=== PATIENT | male | born 1950 | race Caucasian/White ===

== ENCOUNTER 2018-03-21 16:29 | Emergency (ER) | payer MEDICARE, OTHER ==
[2018-03-21 16:47] VITALS: BP 118/67
--- NOTE | 2018-03-21 17:07 | EDM.PDOC ---
ED HPI GENERAL MEDICAL PROBLEM - General Chief Complaint: Lower Extremity Injury/Pain Stated Complaint: LEFT ANKLE INJURY Time Seen by Provider: 03/21/18 17:00 Source of Information: Reports: Patient History Limitations: Reports: No Limitations - History of Present Illness INITIAL COMMENTS - FREE TEXT/NARRATIVE: 67-year-old male turned his left ankle when he stepped wrong on his dock at home. This happened 6 hours ago. He now has pain and swelling around the ankle. Also a slight abrasion on the anterior aspect of the left knee, but no bony tenderness. Onset: Sudden Duration: Hour(s): (6 hours ago) Location: Reports: Lower Extremity, Left Severity: Mild - Related Data Allergies Allergy/AdvReac Type Severity Reaction Status Date / Time No Known Allergies Allergy Verified 03/21/18 17:15 Home Meds: Home Meds Cyanocobalamin (Vitamin B-12) [Vitamin B-12] 1,000 mcg PO DAILY 05/29/16 [ History] Gabapentin [Neurontin] 800 mg PO QID 05/29/16 [History] Tamsulosin [Flomax] 0.4 mg PO DAILY 05/29/16 [History] carBAMazepine [carBAMazepine ER] 200 mg PO TID 03/21/18 [History] Past Medical History Gastrointestinal History: Reports: Cholelithiasis Genitourinary History: Reports: Prostate Disorder Musculoskeletal History: Reports: Other (See Below) Other Musculoskeletal History: cervical fractur 2 3 4 Neurological History: Reports: Neuropathy, Peripheral Hematologic History: Reports: B12 Deficiency - Past Surgical History Neurological Surgical History: Reports: C-Spine, Spinal Fusion Social & Family History - Caffeine Use Caffeine Use: Reports: Coffee - Living Situation & Occupation Living situation: Reports: Occupation: Employed Review of Systems - Review of Systems Review Of Systems: See Below Constitutional: Denies: Fever Respiratory: Denies: Shortness of Breath Cardiovascular: Denies: Chest Pain GI/Abdominal: Denies: Abdominal Pain Skin: Reports: Other (Superficial abrasion on the left knee) ED EXAM, GENERAL - Physical Exam Exam: See Below Exam Limited By: No Limitations General Appearance: Alert, No Apparent Distress Respiratory/Chest: No Respiratory Distress Extremities: Other (Exam is otherwise limited to the lower extremities. There is a superficial abrasion on the anterior aspect of the left knee, no knee instability or effusion. The left ankle is swollen and tender over the medial and lateral malleolus but no deformity is present. Some slight bruising has started.) Course - Vital Signs Last Recorded V/S: Last Vital Signs Temp 98.3 F 03/21/18 17:15 Pulse 76 03/21/18 17:15 Resp 16 03/21/18 17:15 BP 118/67 03/21/18 17:15 Pulse Ox 98 03/21/18 17:15 - Orders/Labs/Meds Orders: Active Orders 24 hr Category Date Time Status Ankle Min 3V Lt [CR] Stat Exams 03/21/18 17:37 Taken - Re-Assessments/Exams Free Text/Narrative Re-Assessment/Exam: 03/21/18 18:08 An x-ray of the left ankle was obtained which was negative for fracture. A four- inch Collin wrap was applied to the ankle which was supportive and felt comfortable , the patient will increase activity as tolerated using his cane. Recheck in 5- 7 days if not improving satisfactorily. Departure - Departure Time of Disposition: 18:30 Disposition: Home, Self-Care 01 Condition: Good Clinical Impression: Sprain of left ankle Qualifiers: Encounter type: initial encounter Involved ligament of ankle: anterior talofibular ligament Qualified Code(s): S93.492A - Sprain of other ligament of left ankle, initial encounter - Discharge Information Instructions: Ankle Sprain, [id number] Referrals: PCP,None [Primary Care Provider] - Forms: ED Department Discharge Care Plan Goals: Wrap ankle for comfort, and increase activity as tolerated. Elevate ankle when not in use, and ice may be beneficial as well. Ibuprofen will help with pain and recheck in 5-7 days if not improving satisfactorily. - My Orders Last 24 Hours: My Active Orders 03/21/18 17:37 Ankle Min 3V Lt [CR] Stat - Assessment/Plan Last 24 Hours: My Active Orders 03/21/18 17:37 Ankle Min 3V Lt [CR] Stat
--- NOTE | 2018-03-22 09:04 | CR ---
Ankle Min 3V Lt CLINICAL HISTORY: Injury FINDINGS: The soft tissues are moderately swollen. No acute fracture or dislocation is noted. Ankle m ortise is intact. Articular surfaces are smooth Impression: Moderate soft tissue swelling No fracture or dislocation
== END 2018-03-21 18:29 | disposition home or self-care (01) ==
LOC: JP.ED 16:29
DX: S93.492A Sprain of other ligament of left ankle, initial encounter (principal); S80.212A Abrasion, left knee, initial encounter; Z79.899 Other long term (current) drug therapy; X50.9XXA Other and unspecified overexertion or strenuous movements or postures, initial encounter; Y92.009 Unspecified place in unspecified non-institutional (private) residence as the place of occurrence of the external cause
CPT/HCPCS: 73610-26-LT; 73610-LT; 99284

== ENCOUNTER → 2018-12-02 | Day surgery (SDC) | payer MEDICARE, OTHER ==
[~2018-12-02] MED LIST: Midazolam 1 MG/ML 2 ML SDV ONE; Propofol 200 MG/20 ML SDV ONE; fentaNYL 100 MCG/2 ML SDV ONE
[2018-12-02] MEDS: Sodium Chloride 0.9% 1,000 ML IV SCH (08:45)
[2018-12-02 10:17] VITALS: BP 129/79
--- NOTE | 2018-12-05 13:57 | OR ---
DATE OF PROCEDURE: 12/02/2018 PROCEDURE: Colonoscopy. FINDINGS: 1. Transverse colon polyp, approximately 5 mm, completely removed with cold biopsy forceps. 2. Descending colon polyp #1, approximately 5 mm, completely removed using cold biopsy forceps. 3. Transverse colon #2, approximately 8 mm, completely removed using snare. COMPLICATIONS: None. MOLDED GOODS CONTROLS OPERATOR: Morgan Miller MD MOLDED GOODS CONTROLS OPERATOR: None. ANESTHESIA: MAC. PREOPERATIVE DIAGNOSIS: Screening colonoscopy. POSTOPERATIVE DIAGNOSIS: Screening colonoscopy. RISKS: Risks, benefits, alternatives, and limitations including, but not limited to infection, bleeding, perforation were explained to the patient, who wished to proceed. PROCEDURE IN DETAIL: The patient was placed in left lateral decubitus position. Digital rectal exam was performed without abnormality. The scope was introduced and advanced atraumatically to the ileocecal valve. The scope was brought back through the ascending, transverse, descending colon, and retroflexed. The aforementioned polyps were identified and completely removed. No evidence of old or new blood. No other abnormalities. Prep was moderately acceptable. The patient tolerated the procedure well. Morgan Miller MD /[id number]
== END ==
LOC: JP.SDS 07:53
PROVIDERS: ATTEND Surgery
DX: Z12.11 Encounter for screening for malignant neoplasm of colon (principal); D12.3 Benign neoplasm of transverse colon; K63.5 Polyp of colon; E66.9 Obesity, unspecified; Z68.35 Body mass index [BMI] 35.0-35.9, adult; Z86.010 Personal history of colon polyps
CPT/HCPCS: 45380; 45385; 88305; J2250; J2704; J3010; J7030